=== PATIENT | male | born 1995 | race Hispanic/Latino ===

== ENCOUNTER 2018-04-11 19:25 | Emergency (ER) | payer SELFPAY ==
[2018-04-11 20:05] VITALS: BP 127/77
[2018-04-11] MEDS ORDERED: MOTRIN PO ONE (20:06)
== END 2018-04-11 20:10 | disposition left against medical advice (07) ==
LOC: EDBD → ED 19:25
DX: K08.89 Other specified disorders of teeth and supporting structures (principal); Z53.21 Procedure and treatment not carried out due to patient leaving prior to being seen by health care provider